=== PATIENT | female | born 1950 | race Caucasian/White ===

== ENCOUNTER → 2024-04-28 | Outpatient (CLI) | payer MEDICARE, BC, SELFPAY ==
--- NOTE | 2024-04-28 13:30 | XR_ITS ---
Examination: Thyroid sonography complete TECHNIQUE: Multiple grayscale sonographic images of the thyroid lobes with color flow analysis Exam date and time: April 28, 2024 1336 hours Comparison July 21, 2023 INDICATIONS: Bilateral thyroid nodules on ultrasound July 21, 2023, 14 mm lower pole right thyroid, 5 mm upper pole left thyroid FINDINGS: Right thyroid 4.8 x 1.4 x 1.3 cm Lower pole nodules 10 x 7 x 10 mm, 11 x 10 x 11 mm Left thyroid 4.2 x 1.5 x 1.5 cm Upper pole nodule 5 x 4 x 5 mm IMPRESSION: Bilateral thyroid nodules as above Recommend 1 additional 6 month thyroid sonography follow-up
== END | disposition home or self-care (01) ==
PROVIDERS: PCP Family Medicine; Referring Provider Internal Medicine Endocrinology, Diabetes & Metabolism; Visit Provider Internal Medicine Endocrinology, Diabetes & Metabolism
DX: E04.2 Nontoxic multinodular goiter (principal)
CPT/HCPCS: 76536

== ENCOUNTER → 2024-09-06 | Outpatient (CLI) | payer MEDICARE, BC, SELFPAY ==
[2024-09-06 10:02] LABS: Collection Type, Urine Clean Catch
[2024-09-06 10:37] LABS: Basophils % (Auto) 1 % (0-2.5); Eosinophils # (Auto) 0.2 Thou/mm3 (0.0-0.5); Eosinophils % (Auto) 3 % (0-10); Hematocrit 43.7 % (36.0-46.0); Hemoglobin 14.6 g/dL (12.0-16.0); Immature Granulocytes % (Auto) 0 % (0-0); Immature Granulocytes Auto 0.02 Thou/mm3 (0.00-0.00); Lymphocytes # (Auto) 1.7 Thou/mm3 (1.0-4.8); Lymphocytes % (Auto) 25 % (10-50); Mean Corpuscular HGB Conc 33.4 g/dl (31.0-37.0); Mean Corpuscular Hemoglobin 31.1 pg (25.0-35.0); Mean Corpuscular Volume 93 fL (80-100); Monocytes # (Auto) 0.5 Thou/mm3 (0.0-0.8); Monocytes % (Auto) 7 % (0-12); Neutrophils # (Auto) 4.5 Thou/mm3 (1.8-7.7); Neutrophils % (Auto) 64 % (37-80); Nucleated Red Blood Cell % 0 /100 WBC (0); Platelet Count 124 Thou/mm3 (140-440); RDW Standard Deviation 47.9 fL (36.4-46.3)
[2024-09-06 10:47] LABS: Glucose Estimated Average 148 mg/dL (80-131); Hemoglobin A1C 6.8 % Hgb (4.8-6.0)
[2024-09-06 10:50] LABS: Bacteria,Urine 3+; Bilirubin,Urine Negative (Negative); Blood,Urine Negative (Negative); Clarity,Urine Clear (Clear/Hazy); Color,Urine Lt-Yellow (Lt Yel-Yel); Glucose, Urine Negative (Negative); Ketones,Urine Negative (Negative); Leukocyte Esterase,Urine Negative (Negative); Nitrite,Urine Negative (Negative); Protein,Urine Negative (Neg - Trace); RBC,Urine < 1 /hpf (0-3); Specific Gravity,Urine 1.018 (1.001-1.035); Squamous Epithelial Cell,Urine 3 /hpf (0-5); Urobilinogen,Urine Negative mg/dL (0.0-1.0); WBC,Urine 2 /hpf (0-5)
[2024-09-06 10:53] LABS: Culture Indicated,Urine Yes
[2024-09-06 10:53] LABS: Vitamin D 25 Hydroxy Total 21.4 ng/mL (7.3-40.2)
[2024-09-06 10:55] LABS: Alanine Aminotransferase 18 U/L (10-49); Albumin, Serum 4.2 gm/dL (3.4-4.8); Albumin/Globulin Ratio 1.5 (1.2-2.2); Alkaline Phosphatase 78 U/L (46-116); Anion Gap 7 (7-16); Aspartate Amino Transferase 21 U/L (0-34); BUN/Creatinine Ratio 13 Ratio (12-20); Bilirubin,Total 0.7 mg/dL (0.3-1.2); Blood Urea Nitrogen 15 mg/dL (9-23); Calcium 9.4 mg/dL (8.3-10.6); Calcium (Corrected) 9.4 mg/dL (8.5-10.1); Carbon Dioxide 31.3 mMol/L (20.0-31.0); Cardiac Risk Estimate 3.4 RATIO (3.7-5.6); Chloride 104 mMol/L (98-107); Cholesterol 181 mg/dL (132-200); Creatinine (Component) 1.2 mg/dL (0.6-1.3); Globulin 2.8 gm/dL (2.3-3.5); Glucose 134 mg/dL (74-106); HDL Cholesterol 54 mg/dL (40-60); LDL Cholesterol,Calculated 99 mg/dL (0-130); Osmolality,Calculated 285 (275-295); Potassium 4.5 mMol/L (3.4-5.1); Sodium 142 mMol/L (136-145); Triglycerides 138 mg/dL (30-150); eGFR 48 See Note
[2024-09-06 10:58] LABS: Creatinine MALB Rnd Ur 121 mg/dL (30-125); Microalbumin Creat Ratio 13 mg/gCrea (<30); Microalbumin, Random Urine 16 mg/L (0-300)
== END | disposition home or self-care (01) ==
LOC: COPL 08:59
PROVIDERS: PCP Family Medicine; Referring Provider Registered Nurse; Visit Provider Registered Nurse
DX: Z00.00 Encounter for general adult medical examination without abnormal findings (principal); E11.9 Type 2 diabetes mellitus without complications; I10 Essential (primary) hypertension; E78.2 Mixed hyperlipidemia
CPT/HCPCS: 36415; 80053; 80061; 81001; 82043; 82306; 82570; 83036; 85025; 87086

== ENCOUNTER → 2024-09-28 | Outpatient (CLI) | payer MEDICARE, BC, SELFPAY ==
[2024-09-28 15:27] LABS: Free T4 (Free Thyroxine) 0.82 ng/dL (0.89-1.76); Magnesium 1.7 mg/dL (1.6-2.6); Thyroid Stimulating Hormone 1.94 uIU/mL (0.55-4.78)
[2024-09-28 15:28] LABS: Vitamin B12 334 pg/mL (211-911)
[2024-09-28 16:03] LABS: Mono Screen Negative (Negative)
[2024-09-29 12:40] LABS: Cocci Serology, IgM Negative (Negative)
[2024-09-30 14:52] LABS: Cocci Serology, IgG Negative (Negative)
[2024-10-10 06:54] LABS: ANA Screen, IFA NEGATIVE (NEGATIVE)
== END | disposition home or self-care (01) ==
LOC: COPL 14:27
PROVIDERS: PCP Family Medicine; Referring Provider Registered Nurse; Visit Provider Registered Nurse
DX: E07.9 Disorder of thyroid, unspecified (principal); R53.82 Chronic fatigue, unspecified
CPT/HCPCS: 36415; 82607; 83735; 84439; 84443; 86038; 86308; 86331; 86635

== ENCOUNTER → 2024-10-11 | Outpatient (CLI) | payer MEDICARE, BC, SELFPAY ==
--- NOTE | 2024-10-11 11:30 | XR_ITS ---
Examination: Thyroid sonography complete TECHNIQUE: Grayscale sonographic images thyroid lobes Date and time: October 03, 2024 1105 hours Comparison April 28, 2024 INDICATIONS: Thyroid sonogram April 28, 2024 right thyroid lower pole nodule 10 mm, 11 mm upper pole left thyroid nodule 5 mm FINDINGS: Right thyroid 4.1 cm Lower pole nodule is 8 x 7 mm, 12 x 14 mm Left thyroid 4.0 cm Midpole nodule 11 x 10 mm IMPRESSION: Enlarging lower pole right thyroid nodule, consider ultrasound-guided fine-needle aspiration of this nodule
== END | disposition home or self-care (01) ==
LOC: CDIM 10:48
PROVIDERS: PCP Family Medicine; Referring Provider Registered Nurse; Visit Provider Registered Nurse
DX: E04.1 Nontoxic single thyroid nodule (principal)
CPT/HCPCS: 76536

== ENCOUNTER → 2024-11-10 | Outpatient (CLI) | payer MEDICARE, BC, SELFPAY ==
[2024-11-10 12:00] LABS: Basophils % (Auto) 1 % (0-2.5); Eosinophils # (Auto) 0.3 Thou/mm3 (0.0-0.5); Eosinophils % (Auto) 4 % (0-10); Hematocrit 39.5 % (36.0-46.0); Hemoglobin 13.7 g/dL (12.0-16.0); Immature Granulocytes % (Auto) 0 % (0-0); Immature Granulocytes Auto 0.01 Thou/mm3 (0.00-0.00); Lymphocytes # (Auto) 1.7 Thou/mm3 (1.0-4.8); Lymphocytes % (Auto) 25 % (10-50); Mean Corpuscular HGB Conc 34.7 g/dl (31.0-37.0); Mean Corpuscular Volume 95 fL (80-100); Monocytes # (Auto) 0.6 Thou/mm3 (0.0-0.8); Monocytes % (Auto) 8 % (0-12); Neutrophils # (Auto) 4.5 Thou/mm3 (1.8-7.7); Neutrophils % (Auto) 63 % (37-80); Nucleated Red Blood Cell % 0 /100 WBC (0); Platelet Count 143 Thou/mm3 (140-440); RDW Standard Deviation 49.2 fL (36.4-46.3); Red Blood Count 4.15 Miln/mm3 (4.00-5.20); White Blood Count 7.1 Thou/mm3 (3.6-11.0)
[2024-11-10 12:21] LABS: Free T4 (Free Thyroxine) 0.97 ng/dL (0.89-1.76); Thyroid Stimulating Hormone 1.63 uIU/mL (0.55-4.78)
[2024-11-10 12:34] LABS: Iron 68 mcg/dL (50-170); Percent Iron Saturation 22 % (20-55); Total Iron Binding Capacity 307 mcg/dL (250-425); Unsaturated Iron Binding 239 (225-295)
[2024-11-15 06:49] LABS: DHEA Sulfate* 58 mcg/dL (7-177); Thyroglobulin Antibodies* <1 IU/mL (< OR = 1); Thyroid Peroxidase Antibodies* 2 IU/mL (<9)
== END | disposition home or self-care (01) ==
LOC: COPL 10:57
PROVIDERS: PCP Family Medicine; Referring Provider Registered Nurse; Visit Provider Registered Nurse
DX: E03.9 Hypothyroidism, unspecified (principal); R79.89 Other specified abnormal findings of blood chemistry; R53.82 Chronic fatigue, unspecified; D51.8 Other vitamin B12 deficiency anemias; D44.0 Neoplasm of uncertain behavior of thyroid gland
CPT/HCPCS: 36415; 82627; 83540; 83550; 83735; 84439; 84443; 85025; 86376; 86800

== ENCOUNTER → 2024-12-20 | Outpatient (CLI) | payer MEDICARE, BC, SELFPAY ==
[2024-12-20 13:15] LABS: Basophils # (Auto) 0.0 Thou/mm3 (0.0-0.2); Basophils % (Auto) 1 % (0-2.5); Eosinophils # (Auto) 0.3 Thou/mm3 (0.0-0.5); Eosinophils % (Auto) 4 % (0-10); Hematocrit 43.0 % (36.0-46.0); Hemoglobin 14.2 g/dL (12.0-16.0); Immature Granulocytes Auto 0.02 Thou/mm3 (0.00-0.00); Lymphocytes # (Auto) 1.8 Thou/mm3 (1.0-4.8); Lymphocytes % (Auto) 25 % (10-50); Mean Corpuscular HGB Conc 33.0 g/dl (31.0-37.0); Mean Corpuscular Hemoglobin 31.8 pg (25.0-35.0); Mean Corpuscular Volume 96 fL (80-100); Monocytes # (Auto) 0.5 Thou/mm3 (0.0-0.8); Monocytes % (Auto) 8 % (0-12); Neutrophils # (Auto) 4.5 Thou/mm3 (1.8-7.7); Neutrophils % (Auto) 63 % (37-80); Nucleated Red Blood Cell # 0.00 Thou/mm3 (0.00-0.00); Nucleated Red Blood Cell % 0 /100 WBC (0); Platelet Count 133 Thou/mm3 (140-440); RDW Standard Deviation 45.1 fL (36.4-46.3); Red Blood Count 4.47 Miln/mm3 (4.00-5.20); White Blood Count 7.2 Thou/mm3 (3.6-11.0)
[2024-12-20 13:20] LABS: INR 1.0 (0.9-1.3); Partial Thromboplastin Time 26.9 Seconds (22.0-36.0); Prothrombin Time 11.2 Seconds (9.0-12.2)
== END | disposition home or self-care (01) ==
LOC: COPL 11:45
PROVIDERS: PCP Registered Nurse; Referring Provider Surgery; Visit Provider Surgery
DX: E04.2 Nontoxic multinodular goiter (principal)
CPT/HCPCS: 36415; 85025; 85610; 85730

== ENCOUNTER → 2025-01-22 | Outpatient (CLI) | payer MEDICARE, BC, SELFPAY ==
[2025-01-19 13:32] LABS: Basophils # (Auto) 0.0 Thou/mm3 (0.0-0.2); Basophils % (Auto) 0 % (0-2.5); Eosinophils # (Auto) 0.3 Thou/mm3 (0.0-0.5); Eosinophils % (Auto) 4 % (0-10); Hematocrit 43.0 % (36.0-46.0); Hemoglobin 14.2 g/dL (12.0-16.0); Immature Granulocytes Auto 0.02 Thou/mm3 (0.00-0.00); Lymphocytes # (Auto) 2.0 Thou/mm3 (1.0-4.8); Lymphocytes % (Auto) 26 % (10-50); Mean Corpuscular HGB Conc 33.0 g/dl (31.0-37.0); Mean Corpuscular Hemoglobin 31.6 pg (25.0-35.0); Mean Corpuscular Volume 96 fL (80-100); Monocytes # (Auto) 0.6 Thou/mm3 (0.0-0.8); Monocytes % (Auto) 8 % (0-12); Neutrophils # (Auto) 4.7 Thou/mm3 (1.8-7.7); Neutrophils % (Auto) 62 % (37-80); Nucleated Red Blood Cell # 0.00 Thou/mm3 (0.00-0.00); Nucleated Red Blood Cell % 0 /100 WBC (0); Platelet Count 143 Thou/mm3 (140-440); RDW Standard Deviation 44.2 fL (36.4-46.3); Red Blood Count 4.49 Miln/mm3 (4.00-5.20); White Blood Count 7.7 Thou/mm3 (3.6-11.0)
[2025-01-19 13:41] LABS: INR 1.0 (0.9-1.3); Partial Thromboplastin Time 25.1 Seconds (22.0-36.0); Prothrombin Time 11.0 Seconds (9.0-12.2)
--- NOTE | 2025-01-22 10:30 | XR_ITS ---
Sonographic Examination: Ultrasound-guided fine needle percutaneous aspiration thyroid nodule, right thyroid lobe. Thyroid sonography, limited Exam date and time: January 22, 2025 1042 hours INDICATIONS: 12 x 14 mm lower pole right thyroid nodule on thyroid sonogram October 11, 2024. Technique: A timeout was completed verifying correct patient, procedure, site, positioning and special equipment if applicable. The patient was placed in supine position for the thyroid fine needle percutaneous aspiration The patient's right neck was prepped and draped in sterile fashion. Maximum barrier sterile technique, hand hygiene, ultrasound sterile technique. 1% lidocaine was used to anesthetize the skin and subcutaneous tissues to the patient's right thyroid nodule. Multiple fine needle aspirations were performed and multiple thyroid specimens placed in preservative according to the [facility] protocol. Specimens appears satisfactory. The attending radiologist was present for the entire procedure. Estimated blood loss 3 cc. The patient tolerated the procedure well and there were no complications. Impression: Successful ultrasound-guided fine-needle percutaneous aspiration thyroid nodule, lower pole right thyroid nodule.
== END | disposition home or self-care (01) ==
LOC: SDIM 09:51
PROVIDERS: Radiology Diagnostic Radiology; PCP Family Medicine; Referring Provider Registered Nurse; Visit Provider Registered Nurse
DX: E04.1 Nontoxic single thyroid nodule (principal); Z01.812 Encounter for preprocedural laboratory examination
CPT/HCPCS: 10005; 36415; 85025; 85610; 85730

== ENCOUNTER → 2025-02-20 | Outpatient (CLI) | payer MEDICARE, BC, SELFPAY ==
[2025-02-20 13:29] LABS: Anion Gap 10 (7-16); BUN/Creatinine Ratio 13 Ratio (12-20); Blood Urea Nitrogen 16 mg/dL (9-23); Calcium 10.0 mg/dL (8.3-10.6); Carbon Dioxide 29.2 mMol/L (20.0-31.0); Chloride 102 mMol/L (98-107); Creatinine (Component) 1.2 mg/dL (0.6-1.3); Glucose 159 mg/dL (74-106); Osmolality,Calculated 285 (275-295); Potassium 4.2 mMol/L (3.4-5.1); Sodium 141 mMol/L (136-145); eGFR 48 See Note
== END | disposition home or self-care (01) ==
LOC: COPL 12:17
PROVIDERS: PCP Registered Nurse; Referring Provider Registered Nurse; Visit Provider Registered Nurse
DX: R22.1 Localized swelling, mass and lump, neck (principal)
CPT/HCPCS: 36415; 80048

== ENCOUNTER → 2025-04-18 | Outpatient (CLI) | payer MEDICARE, BC, SELFPAY ==
[2025-04-18 13:25] LABS: Free T3 2.6 pg/mL (2.3-4.2); Free T4 (Free Thyroxine) 1.01 ng/dL (0.89-1.76); Thyroid Stimulating Hormone 1.33 uIU/mL (0.55-4.78)
== END | disposition home or self-care (01) ==
LOC: COPL 12:09
PROVIDERS: PCP Family Medicine; Referring Provider Student in an Organized Health Care Education/Training Program; Visit Provider Student in an Organized Health Care Education/Training Program
DX: E03.9 Hypothyroidism, unspecified (principal)
CPT/HCPCS: 36415; 84439; 84443; 84481

== ENCOUNTER → 2025-05-07 | Outpatient (CLI) | payer MEDICARE, BC, SELFPAY ==
--- NOTE | 2025-05-07 | XR_ITS ---
Examination: Foot, left, 3 views Technique: AP, oblique, lateral views foot, 3 views Date and time of exam: May 07, 2025, 1233 hours INDICATIONS: Left foot pain several years post injury 2017 FINDINGS: Severe osteopenia No acute fracture Mild diffuse Joints of the foot No erosive arthritis 10 mm plantar bony calcaneal spur IMPRESSION: No fracture 10 mm plantar bony calcaneal spur
--- NOTE | 2025-05-07 12:00 | XR_ITS ---
EXAMINATION: Thyroid sonography complete TECHNIQUE: Grayscale sonographic images thyroid lobes Date and time: May 07, 2025, 1203 hours INDICATIONS: History bilateral thyroid nodules, right thyroid lower pole nodule 8 mm 14 mm mid pole left thyroid nodule 11 mm on ultrasound October 03, 2024 FINDINGS: Right thyroid 3.8 cm Lower pole nodules 5 x 4 mm, 6 x 7 mm, 13 x 11 mm Left thyroid 4.1 cm Upper pole nodule 4 x 4 millimeter Mid pole nodule 12 x 8 mm IMPRESSION: Bilateral thyroid nodules as above, consider continued 6-month follow-up thyroid sonography
== END | disposition home or self-care (01) ==
LOC: CDIM 11:51
PROVIDERS: PCP Registered Nurse; Referring Provider Student in an Organized Health Care Education/Training Program; Visit Provider Student in an Organized Health Care Education/Training Program
DX: M77.32 Calcaneal spur, left foot (principal); E04.2 Nontoxic multinodular goiter
CPT/HCPCS: 73630; 76536